=== PATIENT | female | born 2000 | race Caucasian/White ===

== ENCOUNTER 2018-09-08 17:28 | Emergency (ER) | payer OTHER ==
[~2018-09-08] VITALS: Ht 170.2 cm; Wt 61.4 kg
[2018-09-08 17:47] VITALS: BP 119/56; TEMP 97.3
[2018-09-08 21:20] VITALS: PULSE 71
== END 2018-09-08 21:23 | disposition home or self-care (01) ==
LOC: COL.ER 17:28
DX: S63.269A Dislocation of metacarpophalangeal joint of unspecified finger, initial encounter (principal); S62.305A Unspecified fracture of fourth metacarpal bone, left hand, initial encounter for closed fracture; W22.8XXA Striking against or struck by other objects, initial encounter; Y92.009 Unspecified place in unspecified non-institutional (private) residence as the place of occurrence of the external cause
CPT/HCPCS: Q4050